=== PATIENT | female | born 1965 | race Caucasian/White ===

== ENCOUNTER 2024-10-29 18:21 | Emergency (ER) | payer OTHER ==
[~2024-10-29] VITALS: Ht 162.6 cm; Wt 77.1 kg
[2024-10-29 18:21] VITALS: BP 151/81; TEMP 98.3; O2SAT 98
[2024-10-29] MEDS ORDERED: IBUP-1490 PO (18:40)
[2024-10-29] MEDS ORDERED: IBUPROFEN 600 MG TABLET ONE (18:57)
[2024-10-29] MEDS ORDERED: IBUPROFEN 600 MG TABLET PO ONE (19:00)
== END 2024-10-29 19:00 | disposition home or self-care (01) ==
LOC: ER 18:25
DX: S13.4XXA Sprain of ligaments of cervical spine, initial encounter (principal); M54.6 Pain in thoracic spine; J45.909 Unspecified asthma, uncomplicated; V43.52XA Car driver injured in collision with other type car in traffic accident, initial encounter; Y93.89 Activity, other specified; Y92.488 Other paved roadways as the place of occurrence of the external cause; Y99.8 Other external cause status